=== PATIENT | female | born 1985 | race Caucasian/White ===

== ENCOUNTER → 2017-06-05 | Outpatient (REF) | payer OTHER ==
[2017-06-05 20:34] LABS: BASO % 0.3 % (0.0-1.0); EOS # 0.2 K/mm3 (0.0-0.50); EOS % 2.9 % (0.0-3.0); LYMPH % 33.6 % (24.0-44.0); MEAN CORPUSCULAR HEMOGLOBIN 29.7 pg (27.0-33.0); MEAN CORPUSCULAR HGB CONC 32.7 g/dl (32.0-36.5); MONO # 0.2 K/mm3 (0.0-0.8); MONO % 4.2 % (0.0-5.0); NEUTROPHILS # 3.4 K/mm3 (1.8-7.7); NEUTROPHILS % 56.9 % (36.0-66.0); RED CELL DISTRIBUTION WIDTH 12.2 % (11.5-14.5); WHITE BLOOD COUNT 5.9 K/mm3 (4.0-10.0)
[2017-06-05 20:47] LABS: ALBUMIN/GLOBULIN RATIO 1.18 (1.00-1.93); ALKALINE PHOSPHATASE 57 U/L (45-117); ALT/SGPT 22 U/L (12-78); ANION GAP 7 MEQ/L (8-16); AST/SGOT 22 U/L (15-37); BILIRUBIN,TOTAL 0.3 MG/DL (0.2-1.0); BLOOD UREA NITROGEN 9 MG/DL (7-18); CALCIUM LEVEL 9.3 MG/DL (8.5-10.1); CARBON DIOXIDE LEVEL 26 MEQ/L (21-32); CHLORIDE LEVEL 104 MEQ/L (98-107); CHOLESTEROL LEVEL 223 MG/DL (<200); CREATININE FOR GFR 0.71 MG/DL (0.55-1.02); GLOMERULAR FILTRATION RATE > 60.0 (>60); GLUCOSE, FASTING 89 MG/DL (70-105); POTASSIUM SERUM 4.7 MEQ/L (3.5-5.1); SODIUM LEVEL 137 MEQ/L (136-145); TOTAL PROTEIN 7.4 GM/DL (6.4-8.2); TRIGLYCERIDES LEVEL 135 MG/DL (<150)
== END ==
LOC: M LAB REF 18:08
PROVIDERS: ATTEND Family Medicine
DX: Z00.00 Encounter for general adult medical examination without abnormal findings (principal); O36.8990 Maternal care for other specified fetal problems, unspecified trimester, not applicable or unspecified

== ENCOUNTER → 2017-09-10 | Outpatient (REF) | payer OTHER ==
[2017-09-10 20:33] LABS: FREE T4 0.84 NG/DL (0.76-1.46)
[2017-09-11 10:57] LABS: HBsAg Prenatal NEGATIVE (NEGATIVE)
== END ==
LOC: M LAB REF 17:37
PROVIDERS: ATTEND Obstetrics & Gynecology
DX: O36.80X0 Pregnancy with inconclusive fetal viability, not applicable or unspecified (principal); Z32.01 Encounter for pregnancy test, result positive

== ENCOUNTER → 2018-03-22 | Outpatient (REF) | payer OTHER | LOC: M LAB REF 18:23 | DX: Z34.83 Encounter for supervision of other normal pregnancy, third trimester (principal) ==

== ENCOUNTER 2018-04-21 22:37 | Inpatient (IN) | payer OTHER ==
[2018-04-22 00:42] LABS: HEMATOCRIT 37.1 % (36.0-47.0); HEMOGLOBIN 12.4 g/dl (12.0-15.5); MEAN CORPUSCULAR HEMOGLOBIN 29.2 pg (27.0-33.0); MEAN CORPUSCULAR HGB CONC 33.4 g/dl (32.0-36.5); MEAN CORPUSCULAR VOLUME 87.5 fl (80.0-96.0); PLATELET COUNT, AUTOMATED 294 10^3/uL (150-450); RED BLOOD COUNT 4.24 10^6/uL (4.00-5.40); RED CELL DISTRIBUTION WIDTH 13.6 % (11.5-14.5); WHITE BLOOD COUNT 17.6 10^3/uL (4.0-10.0)
[2018-04-22] MEDS ORDERED: FENTANYL 2MCG/ML ROPIVACAINE 0.2% IN 0.9% NACL 200ML IVBAG As Ordered (03:34)
[2018-04-22] MEDS ORDERED: EPIDURAL/PCA KEYS XX (04:00)
[2018-04-22] MEDS ORDERED: EPIDURAL COMMENT XX (04:00)
[2018-04-22] MEDS ORDERED: NALOXONE INJ 0.4 MG/1 ML VIAL (J2310) IV ×3 (04:00→12:00)
[2018-04-22] MEDS ORDERED: FENTANYL/ROPIVACAINE/NACL BAG 200 ML EPIDURAL (04:00)
[2018-04-22] MEDS ORDERED: ONDANSETRON 4MG/2ML VIAL (J2405) IV ×4 (04:00→13:00)
[2018-04-22] MEDS ORDERED: LACTATED RINGER'S 1000 ML IV (04:00)
[2018-04-22] MEDS ORDERED: REFRIGERATOR IV KEYS XX (04:00)
[2018-04-22] MEDS ORDERED: diphenhydrAMINE INJ 50MG/ML VIAL (J1200) IV (04:00)
[2018-04-22] MEDS ORDERED: ePHEDrine SULFATE 25 MG/5 ML(5MG/ML) SYRINGE As Ordered (04:27)
[2018-04-22] MEDS: ePHEDrine SULFATE 25 MG/5 ML(5MG/ML) SYRINGE IV (04:41)
[2018-04-22] MEDS ORDERED: OXYTOCIN 30 UNITS IN 0.9% NaCl 500ML IV BAG (J2590) As Ordered (07:00)
[2018-04-22] MEDS: OXYTOCIN DRIP 30 UNITS in APPROPRIATE DILUENT 1 EA IV (07:14)
[2018-04-22] MEDS ORDERED: LR 1,000 ML IV (07:15)
[2018-04-22] MEDS: LR 1,000 ML IV ×2 (07:33→12:29)
[2018-04-22] MEDS: PRENATAL VITAMINS CHEWABLE TABLET PO (09:00)
[2018-04-22] MEDS ORDERED: ceFAZolin 2 GM/D5W 50 ML IV BAG (J0690 PER 500MG) As Ordered (11:13)
[2018-04-22] MEDS ORDERED: BICITRA 30ML SOLN UDC As Ordered (11:13)
[2018-04-22] MEDS: BICITRA 30ML SOLN UDC PO (11:45)
[2018-04-22] MEDS ORDERED: OXYTOCIN INJ 10 UNITS/ML VIAL (J2590) As Ordered (11:48)
[2018-04-22] MEDS ORDERED: SODIUM BICARBONATE 8.4% INJ 50 ML SYRINGE As Ordered (11:48)
[2018-04-22] MEDS ORDERED: LIDOCAINE 2% W/EPIN INJ 20ML **PRES FREE As Ordered (11:48)
[2018-04-22] MEDS ORDERED: MORPHINE PRES-FREE INJ 10 MG/10 ML VIAL (J2274) As Ordered (11:50)
[2018-04-22] MEDS ORDERED: KETOROLAC 60 MG/2 ML VIAL (J1885) As Ordered (11:55)
[2018-04-22] MEDS ORDERED: METOCLOPRAMIDE INJ 10MG/2ML VIAL (J2765) IV (12:00)
[2018-04-22 12:09] LABS: CORD GAS ABE A -2.7; CORD GAS HCO3 A 23.6 MEQ/L; CORD GAS O2 SAT A 34.9 %; CORD GAS PCO2 A 46.5 mmHg; CORD GAS PH A 7.323 UNITS; CORD GAS PO2 A 17.9 mmHg; CORD GAS SBC A 20.7 MEQ/L
[2018-04-22 12:19] LABS: CORD GAS ABE V -1.5; CORD GAS HCO3 V 24.4 MEQ/L; CORD GAS O2 SAT V 63.3 %; CORD GAS PCO2 V 45.8 mmHg; CORD GAS PH V 7.345 UNITS; CORD GAS PO2 V 27.1 mmHg; CORD GAS SBC V 22.4 MEQ/L; CORD GAS TCO2 V 25.8 MEQ/L
[2018-04-22] MEDS ORDERED: MOM 30ML SUSPENSION UDC PO (12:30)
[2018-04-22] MEDS ORDERED: NORCO, ANEXSIA 5/325MG TABLET (HYDROcodone/ACETAMINOPHEN) PO (12:30)
[2018-04-22] MEDS ORDERED: METHYLERGONOVINE MALEATE 0.2 MG TAB PO (12:30)
[2018-04-22] MEDS ORDERED: ANUSOL HC CREAM 30GM TOP (12:30)
[2018-04-22] MEDS ORDERED: NALBUPHINE HCL 10 MG/ML AMP (J2300) IV (13:00)
[2018-04-22] MEDS ORDERED: fentaNYL 100 MCG/2 ML INJECTION (J3010) IV (13:00)
[2018-04-22] MEDS: RHOGAM 300 MCG (1500 IU) INJ (J2790) IM (14:38)
[2018-04-22] MEDS: MEASLES,MUMPS,RUBELLA VACCINE INJ (MMR-II) (90707) SC (14:39)
[2018-04-22] MEDS: NALBUPHINE HCL 10 MG/ML AMP (J2300) IV (17:16)
[2018-04-22] MEDS: NORCO, ANEXSIA 5/325MG TABLET (HYDROcodone/ACETAMINOPHEN) PO ×2 (18:12→22:20)
[2018-04-22] MEDS: IBUPROFEN 800 MG TAB PO (20:36)
[2018-04-22] MEDS: DOCUSATE SODIUM 100 MG CAP PO (20:37)
[2018-04-23] MEDS: IBUPROFEN 800 MG TAB PO ×3 (03:03→20:56)
[2018-04-23] MEDS: NORCO, ANEXSIA 5/325MG TABLET (HYDROcodone/ACETAMINOPHEN) PO ×4 (03:04→19:58)
[2018-04-23 06:51] LABS: MEAN CORPUSCULAR HEMOGLOBIN 28.8 pg (27.0-33.0); MEAN CORPUSCULAR HGB CONC 32.3 g/dl (32.0-36.5); MEAN CORPUSCULAR VOLUME 89.3 fl (80.0-96.0); PLATELET COUNT, AUTOMATED 243 10^3/uL (150-450); RED BLOOD COUNT 3.47 10^6/uL (4.00-5.40); WHITE BLOOD COUNT 17.9 10^3/uL (4.0-10.0)
[2018-04-23] MEDS: PRENATAL VITAMINS CHEWABLE TABLET PO (08:57)
[2018-04-23] MEDS: DOCUSATE SODIUM 100 MG CAP PO ×2 (08:57→20:00)
[2018-04-24] MEDS: NORCO, ANEXSIA 5/325MG TABLET (HYDROcodone/ACETAMINOPHEN) PO ×3 (04:29→12:40)
[2018-04-24] MEDS: IBUPROFEN 800 MG TAB PO ×3 (04:30→19:47)
[2018-04-24] MEDS: PRENATAL VITAMINS CHEWABLE TABLET PO (08:34)
[2018-04-24] MEDS: DOCUSATE SODIUM 100 MG CAP PO ×2 (08:34→19:46)
[2018-04-25] MEDS: IBUPROFEN 800 MG TAB PO (03:11)
[2018-04-25] MEDS: NORCO, ANEXSIA 5/325MG TABLET (HYDROcodone/ACETAMINOPHEN) PO (05:13)
[2018-04-25] MEDS: DOCUSATE SODIUM 100 MG CAP PO (08:25)
[2018-04-25] MEDS: PRENATAL VITAMINS CHEWABLE TABLET PO (08:25)
== END 2018-04-25 10:40 | disposition home or self-care (01) | DRG 766 ==
LOC: M LDO 22:37 → M LDI 04-22 00:23 → M OBS 04-22 14:31
PROVIDERS: Obstetrics & Gynecology
PROC: 10D00Z1 Extraction of Products of Conception, Low, Open Approach (ICD-10-PCS; principal; 2018-04-22 11:36)
DX: O36.63X0 Maternal care for excessive fetal growth, third trimester, not applicable or unspecified (principal); O77.0 Labor and delivery complicated by meconium in amniotic fluid; O76 Abnormality in fetal heart rate and rhythm complicating labor and delivery; Z3A.39 39 weeks gestation of pregnancy; O32.4XX0 Maternal care for high head at term, not applicable or unspecified; O66.8 Other specified obstructed labor; Z37.0 Single live birth

== ENCOUNTER → 2018-04-29 | Outpatient (CLI) | payer OTHER | LOC: M RAD 16:08 | DX: R22.43 Localized swelling, mass and lump, lower limb, bilateral (principal) ==

== ENCOUNTER → 2020-11-12 | Outpatient (CLI) | payer SELFPAY ==
[~2020-11-12] MED LIST: COLA100C5 PO; IBUP80TA PO; NORC1TAB7 PO; PRENTAB9 PO
== END ==
LOC: M LABSMTC 10:45
PROVIDERS: ATTEND Pediatrics
DX: Z20.828 Contact with and (suspected) exposure to other viral communicable diseases (principal)

== ENCOUNTER → 2020-11-21 | Outpatient (CLI) | payer SELFPAY | LOC: M LABSMTC 11:25 | PROVIDERS: ATTEND Pediatrics | DX: Z20.828 Contact with and (suspected) exposure to other viral communicable diseases (principal) ==

== ENCOUNTER → 2020-12-06 | Outpatient (CLI) | payer SELFPAY | LOC: M LABSMTC 10:16 | PROVIDERS: ATTEND Pediatrics | DX: Z20.822 Contact with and (suspected) exposure to COVID-19 (principal) ==